=== PATIENT | female | born 1995 | race Caucasian/White ===

== ENCOUNTER 2019-12-09 19:13 | Emergency (ER) | payer BC ==
[~2019-12-09] VITALS: Ht 157.5 cm; Wt 79.4 kg
[2019-12-09 20:04] LABS: ABSOLUTE BASOPHILS 0.1 thou/uL (0.0-0.2); ABSOLUTE EOSINOPHILS 0.1 thou/uL (0.0-0.7); ABSOLUTE LYMPHOCYTES 2.5 thou/uL (0.8-5.3); ABSOLUTE NEUTROPHILS 11.4 thou/uL (1.6-8.1); BASOPHILS 0.6 %; EOSINOPHILS 0.5 %; HEMATOCRIT 36.7 % (37.0-47.0); HEMOGLOBIN 12.5 gm/dL (12.0-15.0); LYMPHOCYTES 16.6 %; MCH 29.9 pg (26.0-34.0); MCHC 34.1 g/dL (28.0-37.0); MCV 87.7 fL (80.0-100.0); MONOCYTES 6.8 %; MPV 7.6 fl. (7.2-11.1); NUCLEATED RBCS 0 /100WBC; PLATELET COUNT* 276 thou/uL (150-400); POLYS 75.5 %; RBC 4.18 mil/uL (4.20-5.00); RDW-CV 14.2 % (10.5-14.5); WBC 15.1 thou/uL (4.0-11.0)
[2019-12-09 20:18] LABS: CALCIUM 8.4 mg/dL (8.5-10.1); CREATININE 0.7 mg/dL (0.6-1.3); POTASSIUM 3.5 mmol/L (3.5-5.1)
[2019-12-09 20:22] LABS: ALBUMIN 3.9 g/dL (3.4-5.0); TOTAL BILIRUBIN 0.5 mg/dL (<0.1-1.0); TOTAL PROTEIN 7.8 g/dL (6.4-8.2)
[2019-12-09 20:57] LABS: URINE BILIRUBIN NEGATIVE (Negative); URINE BLOOD 1+ (Negative); URINE CLARITY CLEAR; URINE COLOR YELLOW; URINE GLUCOSE-RANDOM NEGATIVE (Negative); URINE KETONES NEGATIVE (Negative); URINE LEUKOCYTES-REFLEX NEGATIVE (Negative); URINE NITRITE-REFLEX NEGATIVE (Negative); URINE PROTEIN TRACE (Negative); URINE SPECIFIC GRAVITY >= 1.030 (1.005-1.030); URINE UROBILINOGEN 0.2 E.U./dl (0.2-1.0)
[2019-12-09 21:05] LABS: CASTS None Seen /LPF (None Seen); CRYSTALS None Seen /LPF (None Seen); MUCUS >6 Heavy strn/LPF (None Seen); SQUAMOUS 4-10 Moderate /LPF (0-3); URINE RBC 0-2 Rare /HPF (0-2); URINE WBC-REFLEX 0-5 Rare /HPF (0-5)
[2019-12-09] MEDS ORDERED: HYDROCODON-ACE1 EA10 PO (22:33)
[2019-12-09] MEDS ORDERED: MEDROLDOSEPACK PO (22:33)
[2019-12-09] MEDS ORDERED: CIPROFLOXACIN500 M1 PO (22:33)
[2019-12-09] MEDS ORDERED: FLAGYL 250 MG250 MG PO (22:33)
[2019-12-09 23:12] VITALS: BP 125/74
== END 2019-12-09 23:16 | disposition home or self-care (01) ==
LOC: M.ERS 19:13
PROVIDERS: Personal Emergency Response Attendant
DX: K52.9 Noninfective gastroenteritis and colitis, unspecified (principal); Z88.1 Allergy status to other antibiotic agents

== ENCOUNTER 2020-03-17 20:10 | Emergency (ER) | payer BC ==
[~2020-03-17] VITALS: Ht 157.5 cm; Wt 74.8 kg
[~2020-03-17 20:10] MED LIST: CIPROFLOXACIN500 M1 PO; FLAGYL 250 MG250 MG PO; HYDROCODON-ACE1 EA10 PO; MEDROLDOSEPACK PO
[2020-03-17 21:47] LABS: URINE BILIRUBIN NEGATIVE (Negative); URINE BLOOD TRACE (Negative); URINE CLARITY CLEAR; URINE COLOR YELLOW; URINE GLUCOSE-RANDOM NEGATIVE (Negative); URINE KETONES NEGATIVE (Negative); URINE LEUKOCYTES-REFLEX NEGATIVE (Negative); URINE NITRITE-REFLEX NEGATIVE (Negative); URINE PROTEIN NEGATIVE (Negative); URINE UROBILINOGEN 0.2 E.U./dl (0.2-1.0)
[2020-03-17 21:51] LABS: ABSOLUTE EOSINOPHILS 0.1 thou/uL (0.0-0.7); ABSOLUTE LYMPHOCYTES 1.8 thou/uL (0.8-5.3); ABSOLUTE MONOCYTES 0.3 thou/uL (0.0-1.2); ABSOLUTE NEUTROPHILS 5.6 thou/uL (1.6-8.1); BASOPHILS 0.2 %; EOSINOPHILS 0.7 %; HEMATOCRIT 38.4 % (37.0-47.0); HEMOGLOBIN 13.4 gm/dL (12.0-15.0); LYMPHOCYTES 22.9 %; MCH 29.9 pg (26.0-34.0); MCV 85.4 fL (80.0-100.0); MONOCYTES 4.3 %; MPV 7.4 fl. (7.2-11.1); NUCLEATED RBCS 0 /100WBC; PLATELET COUNT* 258 thou/uL (150-400); POLYS 71.9 %; RDW-CV 14.4 % (10.5-14.5); WBC 7.8 thou/uL (4.0-11.0)
[2020-03-17 21:58] LABS: CALCIUM 9.2 mg/dL (8.5-10.1); CREATININE 0.6 mg/dL (0.6-1.3); POTASSIUM 3.6 mmol/L (3.5-5.1)
[2020-03-17 22:02] LABS: ALBUMIN 4.2 g/dL (3.4-5.0); TOTAL BILIRUBIN 0.8 mg/dL (<0.1-1.0); TOTAL PROTEIN 7.9 g/dL (6.4-8.2)
[2020-03-17] MEDS ORDERED: FLAGYL500 M1 PO (23:27)
[2020-03-17] MEDS ORDERED: ZOFRAN ODT4 MG SUBLING (23:27)
[2020-03-17] MEDS ORDERED: CIPROFLOXACIN500 M1 PO (23:27)
[2020-03-17] MEDS ORDERED: NORCO 5-325 TA1 EAC2 PO (23:27)
[2020-03-17] MEDS ORDERED: PREDNISONE 20 M20 M1 PO (23:27)
[2020-03-17 23:35] VITALS: BP 118/68
== END 2020-03-17 23:36 | disposition home or self-care (01) ==
LOC: M.ERS 20:10
PROVIDERS: Family Medicine
DX: K52.9 Noninfective gastroenteritis and colitis, unspecified (principal); N83.201 Unspecified ovarian cyst, right side; Z88.1 Allergy status to other antibiotic agents